=== PATIENT | male | born 1985 | race Caucasian/White ===

== ENCOUNTER → 2018-08-08 | Outpatient (REF) | payer OTHER ==
[2018-08-08 19:42] LABS: APPEARANCE, URINE CLOUDY (CLEAR); BACTERIA, URINE AUTO NEGATIVE (NEGATIVE); BILIRUBIN, URINE AUTO NEGATIVE (NEGATIVE); BLOOD, URINE BLOOD 3+ (NEGATIVE); COLOR, URINE AMBER (YELLOW); GLUCOSE, URINE (UA) AUTO NEGATIVE (NEGATIVE); KETONE, URINE AUTO TRACE mg/dL (NEGATIVE); LEUKOCYTE ESTERASE, URINE AUTO NEGATIVE (NEGATIVE); MUCUS, URINE SMALL (NEGATIVE); NITRITE, URINE AUTO NEGATIVE (NEGATIVE); PROTEIN, URINE AUTO 2+ mg/dL (NEGATIVE); RBC, URINE AUTO TNTC /HPF (0-3); SPECIFIC GRAVITY URINE AUTO 1.028 (1.002-1.035); SQUAMOUS EPITHELIAL CELL UR AU 0 /HPF (0-6); UROBILINOGEN, URINE AUTO 0.2 mg/dL (0.0-2.0); WBC, URINE AUTO 16 /HPF (0-3)
== END ==
LOC: M SMT 17:26
PROVIDERS: ATTEND Nurse Practitioner Family
DX: R31.0 Gross hematuria (principal)

== ENCOUNTER 2018-09-27 12:18 | Day surgery (SDC) | payer OTHER ==
[~2018-09-27] VITALS: Ht 194.3 cm; Wt 101.5 kg
[~2018-09-27 12:18] MED LIST: CIPR500T39 PO; LIDOCAINE 1% MDV 20ML VIAL SQ PRN
[2018-09-27] MEDS ORDERED: LR 1,000 ML IV ONE (12:45)
[2018-09-27] MEDS ORDERED: ROCURONIUM BROMIDE 50 MG/5 ML VIAL As Ordered ONE (14:55)
[2018-09-27] MEDS ORDERED: LIDOCAINE 2% INJ 100 MG/5 ML SDV (FOR ANES.) As Ordered ONE (14:55)
[2018-09-27] MEDS ORDERED: dexameTHASONE 4 MG/ML 1ML VIAL (J1100) As Ordered ONE (14:55)
[2018-09-27] MEDS ORDERED: PROPOFOL 200 MG/20 ML VIAL As Ordered ONE (14:55)
[2018-09-27] MEDS ORDERED: ONDANSETRON 4MG/2ML VIAL (J2405) As Ordered ONE (14:55)
[2018-09-27] MEDS ORDERED: MIDAZOLAM INJ 2 MG/2 ML VIAL (J2250) As Ordered ONE (16:03)
[2018-09-27] MEDS ORDERED: fentaNYL 100 MCG/2 ML INJECTION (J3010) As Ordered ONE ×3 (16:03→18:14)
[2018-09-27] MEDS ORDERED: GLYCOPYRROLATE INJ 0.2 MG/ML 2 ML VIAL As Ordered ONE (17:13)
[2018-09-27] MEDS ORDERED: NEOSTIGMINE 10 MG/10 ML VIAL (J2710) As Ordered ONE (17:14)
[2018-09-27] MEDS ORDERED: CONRAY-60 60% 50ML VIAL (Q9961) As Ordered ONE (17:23)
[2018-09-27] MEDS ORDERED: fentaNYL 100 MCG/2 ML INJECTION (J3010) IV PRN (19:00)
[2018-09-27] MEDS ORDERED: ONDANSETRON 4MG/2ML VIAL (J2405) IV PRN (19:00)
[2018-09-27] MEDS ORDERED: METOCLOPRAMIDE INJ 10MG/2ML VIAL (J2765) IV PRN (19:00)
[2018-09-27] MEDS ORDERED: PERCOCET 5MG/325MG TAB PO PRN ×2 (19:00)
[2018-09-27] MEDS ORDERED: LR 1,000 ML IV SCH (19:00)
--- NOTE | 2018-09-27 19:06 | REP ---
C-ARM VIEWS DURING URETERAL STENT PLACEMENT AND RETROGRADE PYELOGRAM: Multiple C-Arm views are performed. The first images show opacification of the left ureter and partial opacification of the left pelvicaliceal system. A left ureteral stent is placed in the proximal end coiled in the left renal pelvis and the distal end in coiled in the urinary bladder. Right ureter is then injected with contrast. Right ureter is normal in caliber in the proximal to mid aspect. 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 The two proximal ureters joint at about the L2 level. No definite filling defect or contour abnormality is seen of the right pelvicaliceal system. 28 seconds fluoroscopy time utilized. Electronically Signed by Barrett Nguyen MD 09/28/2018 03:07 P
[2018-09-27] MEDS ORDERED: PROMETHAZINE INJ 25 MG/ML VIAL (J2550) As Ordered ONE (19:35)
[2018-09-27] MEDS: PROMETHAZINE INJ 25 MG/ML VIAL (J2550) IV PRN ×2 (19:38→19:44)
[2018-09-27 20:45] VITALS: BP 130/80
--- NOTE | 2018-09-28 00:10 | RO ---
DATE OF PROCEDURE: 09/27/2018 PREPROCEDURE DIAGNOSIS: Bladder tumors. POSTPROCEDURE DIAGNOSIS: Bladder tumors, left ureteral mass. PROCEDURE: Cystoscopy, transurethral resection of bladder tumor (greater than 5 cm), left ureteroscopy with biopsies, bilateral retrograde pyelogram with intraoperative interpretation of images, left ureteral stent placement, examination under anesthesia. SURGEON: Shashank Morillo MD BOOKBINDER CHIEF: None. ANESTHESIA: General. OPERATIVE INDICATIONS: This is a 33-year-old male who on recent office cystoscopy was found to have several bladder tumors on the left side of his bladder as well near the bladder neck. He was brought to the operating room today for resection of the tumors. DESCRIPTION OF PROCEDURE: The patient was brought to the operating room and general anesthesia induced. Prophylactic antibiotics were infused. He was then placed in the dorsal lithotomy position and then a bimanual digital rectal examination under anesthesia was performed. It was negative for prostate nodules. There were no palpable bladder masses. The bladder was freely mobile. The patient was then prepped and draped in the usual sterile fashion, and then a rigid cystoscope was then inserted into the urethral meatus and advanced into the bladder. The bladder was then thoroughly examined with both the 30- and the 70-degree lenses and abnormalities seen included 4-5 moderate-sized bladder tumors on the left lateral wall, as well as on the bladder neck on the left side, as well as near the left trigone. All of these tumors were then resected using a Gyrus loop and then the specimens were sent off for pathologic analysis. The base of the resection was cauterized, achieved good hemostasis. Of note, I did resect deep enough into the muscle layers at each tumor site. Once satisfied with hemostasis, I observed the ureteral orifices and there appeared to be tissue emanating from the left ureteral orifice, raising concern for a tumor in the left upper tract. At this point, a wire was advanced up the left collecting system and then I went up the left collecting system with a short semirigid ureteroscope. There appeared to be a potential small mass in the distal left ureter. A few biopsies of this area were obtained to be sent for pathologic analysis. A retrograde pyelogram was then performed and was negative for hydronephrosis or filling defects. I then examined the remainder of the ureter as well as the left kidney with the semirigid ureteroscope and then the flexible ureteroscope, and no tumors were seen in the rest of the ureter or the kidney. At this point, the ureteroscope was removed, and the wire was utilized to advance a 6-Citizen [place] x 22-32 cm JJ ureteral stent up into the left collecting system. The wire was removed, and there were adequate curls of the stent in the left renal pelvis and in the bladder. At this point, a wire was advanced up the right collecting system and then an open ureteral catheter was advanced up the right collecting system. The wire was removed, and a retrograde pyelogram was performed. It was negative for hydronephrosis or filling defects. 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 Once this was done, I checked for hemostasis and hemostasis appeared to be excellent. The cystoscope was then removed and then an 18-Citizen Of [place] Cao catheter was inserted in the bladder, and the balloon was filled with 10 mL of sterile water. The catheter was then connected to gravity drainage, and this marked the conclusion of the procedure. The patient was then taken out of the dorsal lithotomy position, awakened from anesthesia and transported to the recovery room in stable condition. Estimated blood loss: 10 mL. Complications: None. Specimens: Bladder tumors, biopsy of left ureteral mass. PLAN: The patient will followup in the clinic in approximately 1 week for catheter removal and to discuss pathology results. Will remove the stent in a few weeks. JUAN
== END 2018-09-27 20:50 | disposition home or self-care (01) ==
LOC: M SDC 12:18
PROVIDERS: ATTEND Urology
DX: C67.9 Malignant neoplasm of bladder, unspecified (principal); I10 Essential (primary) hypertension; Z91.040 Latex allergy status; F12.10 Cannabis abuse, uncomplicated
CPT/HCPCS: 52204; 52240; 52332; 74420; 88305; 88307; C1769; C1894; C2617; J0690; J1100; J2250; J2405; J2710; J2765; J3010; Q9961

== ENCOUNTER 2018-11-15 08:45 | Day surgery (SDC) | payer OTHER ==
[~2018-11-15] VITALS: Ht 193 cm; Wt 98.0 kg
[~2018-11-15 08:45] MED LIST changes: +LR 1,000 ML IV ONE
[2018-11-15] MEDS ORDERED: ceFAZolin 2 GM/D5W 50 ML IV BAG (J0690 PER 500MG) As Ordered ONE (09:33)
[2018-11-15] MEDS ORDERED: PROPOFOL 200 MG/20 ML VIAL As Ordered ONE (09:46)
[2018-11-15] MEDS ORDERED: LIDOCAINE 2% INJ 100 MG/5 ML SDV (FOR ANES.) As Ordered ONE (09:46)
[2018-11-15] MEDS ORDERED: dexameTHASONE 4 MG/ML 1ML VIAL (J1100) As Ordered ONE (09:47)
[2018-11-15] MEDS ORDERED: ROCURONIUM BROMIDE 50 MG/5 ML VIAL As Ordered ONE ×2 (10:25→11:20)
[2018-11-15] MEDS ORDERED: fentaNYL 250 MCG/5 ML INJECTION (J3010) As Ordered ONE (10:25)
[2018-11-15] MEDS ORDERED: MIDAZOLAM INJ 2 MG/2 ML VIAL (J2250) As Ordered ONE (10:25)
[2018-11-15] MEDS ORDERED: ceFAZolin 2 GM/D5W 50 ML IV BAG (J0690 PER 500MG) IV ONE (11:07)
[2018-11-15] MEDS ORDERED: SUGAMMADEX SODIUM 500 MG/5 ML VIAL (BRIDION) As Ordered ONE (11:30)
[2018-11-15] MEDS ORDERED: ONDANSETRON 4MG/2ML VIAL (J2405) As Ordered ONE (11:30)
[2018-11-15] MEDS ORDERED: fentaNYL 100 MCG/2 ML INJECTION (J3010) IV PRN (12:15)
[2018-11-15] MEDS ORDERED: ONDANSETRON 4MG/2ML VIAL (J2405) IV PRN (12:15)
[2018-11-15] MEDS ORDERED: LR 1,000 ML IV SCH (12:15)
[2018-11-15] MEDS ORDERED: ACETAMINOPHEN TAB 650MG DOSE (2X325MG) PO PRN (12:15)
[2018-11-15] MEDS ORDERED: PERCOCET 5MG/325MG TAB PO PRN (12:15)
[2018-11-15 13:00] VITALS: BP 146/91
--- NOTE | 2018-11-18 09:26 | RO ---
DATE OF PROCEDURE: 11/15/2018 PREPROCEDURE DIAGNOSIS: Bladder cancer. POSTPROCEDURE DIAGNOSIS: Bladder cancer. OPERATIVE PROCEDURE: Cystoscopy, restaging transurethral resection of bladder tumor (between 2 and 5 cm), removal of left ureteral stent. SURGEON: Shashank Morillo MD SENIOR VISUAL DESIGNER: None. ANESTHESIA: General. OPERATIVE INDICATIONS: This is a 33-year-old male recently diagnosed with a high grade non-muscle invasive bladder cancer. He had a stent placed at that time. He is brought back to the operating room today per routine for restaging transurethral resection of bladder tumor and also for stent removal. DESCRIPTION OF PROCEDURE: The patient was brought to the operating room and general anesthesia was induced. Prophylactic antibiotics were infused. He was then placed in dorsal lithotomy position and prepped and draped in the usual sterile fashion. At this point, I attempted to insert a resectoscope into the urethral meatus but it would not go. I therefore dilated the urethral meatus to 30-Thai using metal sounds. Once that was done, I was able to get the resectoscope in. I then advanced it into the bladder and then the bladder was thoroughly examined. No tumors were seen. There was a lot of edema on the left side of the bladder in the area of the stent. Once again, no tumors were seen in this area. I then resected the base of the previous area of resection around the stent and tried to get down to the muscle layer. All the specimen was then removed from the bladder using Ellik evacuator. The base of resection was then cauterized with coagulation current until we had good hemostasis. Once satisfied with hemostasis, the stent was then removed. I then went back in with a scope and examined the bladder again to ensure that there was no active bleeding and no tumors and there was no active bleeding and there were no tumors in the bladder. At this point, the resectoscope was removed and an #18-Thai Cao catheter was inserted into the bladder. The balloon was filled with 10 mL of sterile water and the catheter was connected to gravity drainage. This marked the conclusion of the procedure. The patient was taken out of dorsal lithotomy position and awakened from anesthesia and transported to recovery room in stable condition. ESTIMATED BLOOD LOSS: 10 mL. COMPLICATIONS: None. SPECIMENS: Resection of bladder tumor base. PLAN: The patient will followup in the clinic next week for catheter removal and to discuss pathology results.
== END 2018-11-15 13:20 | disposition home or self-care (01) ==
LOC: M SDC 08:45
PROVIDERS: ATTEND Urology
DX: C67.9 Malignant neoplasm of bladder, unspecified (principal); F12.90 Cannabis use, unspecified, uncomplicated
CPT/HCPCS: 52235; 88307; J0690; J1100; J2250; J2405; J3010

== ENCOUNTER → 2019-04-29 | Outpatient (REF) | payer OTHER, MEDICAID ==
[~2019-04-29] MED LIST changes: -LIDOCAINE 1% MDV 20ML VIAL SQ PRN; -LR 1,000 ML IV ONE
== END ==
LOC: M SMT 18:19
PROVIDERS: ATTEND Urology
DX: C67.9 Malignant neoplasm of bladder, unspecified (principal)

== ENCOUNTER → 2019-08-18 | Outpatient (REF) | payer OTHER, MEDICAID | LOC: M SMT 17:12 | PROVIDERS: ATTEND Urology | DX: C67.9 Malignant neoplasm of bladder, unspecified (principal) ==

== ENCOUNTER → 2019-08-18 | Outpatient (REF) | payer OTHER, MEDICAID | LOC: M SMT 17:10 | PROVIDERS: ATTEND Urology | DX: C67.9 Malignant neoplasm of bladder, unspecified (principal) ==

== ENCOUNTER → 2019-11-21 | Outpatient (REF) | payer OTHER, MEDICAID | LOC: M SMT 16:44 | PROVIDERS: ATTEND Urology | DX: C67.9 Malignant neoplasm of bladder, unspecified (principal) ==

== ENCOUNTER → 2020-04-26 | Outpatient (REF) | payer OTHER, MEDICAID | LOC: M SMT 13:22 | PROVIDERS: ATTEND Urology | DX: C67.9 Malignant neoplasm of bladder, unspecified (principal) ==

== ENCOUNTER → 2020-06-25 | Outpatient (CLI) | payer OTHER ==
[~2020-06-25] MED LIST changes: +ISOVUE-370 76% 100ML VIAL As Ordered ONE
--- NOTE | 2020-06-25 18:31 | REP ---
INDICATION: BLADDER CA, FLANK PAIN. CT urography. COMPARISON: None. TECHNIQUE: Contrast dose: ML of Isovue [address] technique: Helical scanning is acquired and overlapping 1.5 mm and contiguous 3 mm axial images are reformatted. In addition, maximum intensity projection and multiplanar re-formation images are generated in sagittal and coronal imaging projections. 3D surface rendered images are generated and viewed in a rotational format. FINDINGS: Preliminary digital marine resource economist radiograph is unremarkable. The lung bases are clear on axial CT images. The liver and the spleen are normal in size homogeneous in texture on postcontrast and precontrast imaging. Normal adrenal glands are seen bilaterally. No abnormality is noted in the pancreas or in the gallbladder. No retroperitoneal mass or adenopathy is observed. The kidneys show no evidence of hydronephrosis or intrarenal calculus. There is moderate multifocal renal cortical scarring affecting the upper pole and midpole of the left kidney. This resembles reflux nephropathy. There is no evidence of hydronephrosis however. Contrast enhancement is symmetric except for the areas of cortical scarring. There is no evidence of enhancing bladder mass on postcontrast images. The prostate is mildly prominent. Seminal vesicles are unremarkable. No filling defect is seen within the urinary bladder or intrarenal collecting systems on postcontrast delayed scan images. Partially duplicated collecting systems are noted bilaterally. The ureters describe a normal course to the bladder. No renal cyst or mass is observed. Small and large intestinal bowel loops are unremarkable. No abdominal wall defect is seen. No bony destructive lesion is appreciated. IMPRESSION: Multifocal renal cortical scarring upper and midpole left kidney question reflux nephropathy. 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 No bladder lesion seen. Mildly enlarged prostate. <Electronically signed by Yonathan Moreno > 06/25/20 [id number]
== END ==
LOC: M RAD 10:28
PROVIDERS: ATTEND Urology
DX: C67.9 Malignant neoplasm of bladder, unspecified (principal); R10.9 Unspecified abdominal pain
CPT/HCPCS: 74178; Q9967

== ENCOUNTER → 2020-09-12 | Outpatient (CLI) | payer OTHER ==
[~2020-09-12] MED LIST changes: -ISOVUE-370 76% 100ML VIAL As Ordered ONE
== END ==
LOC: M LABSMTC 08:15
PROVIDERS: ATTEND Anesthesiology
DX: Z01.818 Encounter for other preprocedural examination (principal); Z20.822 Contact with and (suspected) exposure to COVID-19

== ENCOUNTER 2020-09-17 08:50 | Day surgery (SDC) | payer OTHER ==
[~2020-09-17] VITALS: Ht 193 cm; Wt 111.1 kg
[~2020-09-17 08:50] MED LIST changes: +LR 1,000 ML IV ONE
[2020-09-17] MEDS ORDERED: MIDAZOLAM INJ 2MG/2ML VIAL (J2250 PER 1MG) As Ordered ONE (09:12)
[2020-09-17] MEDS ORDERED: PHENYLephrine 500MCG 5ML (100MCG/ML) SYRINGE As Ordered ONE (09:13)
[2020-09-17] MEDS ORDERED: propofoL 200 MG/20 ML VIAL As Ordered ONE (09:13)
[2020-09-17] MEDS ORDERED: ONDANSETRON 4MG/2ML VIAL As Ordered ONE (09:13)
[2020-09-17] MEDS ORDERED: ACETAMINOPHEN 1000MG 100ML IV BTL (OFIRMEV) (J0131 PER 10MG) As Ordered ONE (09:13)
[2020-09-17] MEDS ORDERED: dexameTHASONE 4 MG/ML 1ML VIAL (J1100 PER 1MG) As Ordered ONE (09:13)
[2020-09-17] MEDS ORDERED: LIDOCAINE 2% 100MG/5ML SDV (FOR ANES.) As Ordered ONE (09:13)
[2020-09-17] MEDS ORDERED: fentaNYL 100 MCG/2 ML INJECTION (J3010) As Ordered ONE (09:13)
[2020-09-17] MEDS ORDERED: ePHEDrine SULFATE 25 MG/5 ML(5MG/ML) SYRINGE As Ordered ONE (09:13)
[2020-09-17] MEDS ORDERED: ceFAZolin SOD 2 GM in IV 1 EA IV ONE (09:45)
[2020-09-17] MEDS ORDERED: ROCURONIUM BROMIDE 50 MG/5 ML VIAL As Ordered ONE ×2 (10:40→11:41)
[2020-09-17] MEDS ORDERED: SUGAMMADEX SODIUM 500 MG/5 ML VIAL (BRIDION) As Ordered ONE (10:40)
[2020-09-17] MEDS ORDERED: mitoMYcin 40MG VIAL *UROLOGY* (J9280 PER 5MG) INTRAVESIC ONE (11:00)
[2020-09-17] MEDS ORDERED: ONDANSETRON 4MG/2ML VIAL IV PRN (12:30)
[2020-09-17] MEDS ORDERED: LR 1,000 ML IV SCH (12:30)
[2020-09-17] MEDS ORDERED: fentaNYL 100 MCG/2 ML INJECTION (J3010) IV PRN (12:30)
[2020-09-17] MEDS ORDERED: METOCLOPRAMIDE INJ 10MG/2ML VIAL (J2765 PER 1) IV PRN (12:30)
[2020-09-17] MEDS ORDERED: PERCOCET 5MG/325MG TAB PO PRN (12:30)
[2020-09-17] MEDS ORDERED: ACETAMINOPHEN TAB 650MG DOSE (2X325MG) PO PRN (12:35)
--- NOTE | 2020-09-17 12:57 | RO ---
OPERATIVE NOTE DATE OF OPERATION: 09/17/2020 PREOPERATIVE DIAGNOSIS: Bladder cancer. POSTOPERATIVE DIAGNOSIS: Bladder cancer. PROCEDURE: Cystoscopy, transurethral resection of bladder tumors (between 2 and 5 cm), intravesical Mitomycin C instillation. SURGEON: Shashank Morillo MD SEXUAL ASSAULT COUNSELLOR: None. ANESTHESIA: General. OPERATIVE INDICATIONS: This is a 35-year-old male with history of bladder cancer who recently had recurrence of low grade tumors. He is brought to the operating room today for treatment of his recurrence. DESCRIPTION OF PROCEDURE: The patient was brought to the operating room and general anesthesia was induced. Prophylactic antibiotics were infused. The patient was placed in dorsal lithotomy position and prepped and draped in usual sterile fashion. At this point a resectoscope was inserted in urethral meatus and advanced to the bladder using the visual obturator. Once inside the bladder it was thoroughly examined. Of note, there were a few small tumors near the dome of the bladder measuring up to about 2.5 cm in size. No other tumors were seen inside the bladder. Both ureteral orifices effluxed clear yellow urine. At this point a loop was utilized to resect the tumors from the dome. All these tumors were sent off for pathologic analysis. Once all the tumors were removed the base resection was cauterized using the coagulation current. Once satisfied with hemostasis the resectoscope was removed. An 18-Lao three-way catheter was inserted into the bladder. The balloon was filled with 30 mL of sterile water. At this point we hooked up the irrigation port to saline and I closed off the saline. We then instilled a total of 40 mg of Mitomycin C in 20 mL of normal saline into the patient's bladder. The catheter plug was then placed to hold that into the bladder. At this point this marked the conclusion of the procedure. The patient was taken out of the dorsal lithotomy position, awakened from anesthesia and transferred to the recovery room in stable condition. ESTIMATED BLOOD LOSS: 5 mL. COMPLICATIONS: None. SPECIMEN: Bladder tumors. PLAN: The patient will keep the Mitomycin C inside his bladder for about an hour in the recovery room. We will have him move from one side to the other so that each aspect of the bladder is exposed to Mitomycin. We then will let it drain out of the bladder and run the saline through. He will go home with a catheter and follow up in urology office next week for catheter removal and discuss his pathology results.
[2020-09-17 14:15] VITALS: BP 158/88
== END 2020-09-17 15:04 | disposition home or self-care (01) ==
LOC: M SDC 08:50
PROVIDERS: ATTEND Urology
DX: C67.9 Malignant neoplasm of bladder, unspecified (principal); Z91.040 Latex allergy status; Z92.21 Personal history of antineoplastic chemotherapy; Z87.891 Personal history of nicotine dependence
CPT/HCPCS: 51720; 52235; 88305; J0131; J0690; J1100; J2250; J2370; J2405; J2765; J3010; J9280

== ENCOUNTER → 2021-01-14 | Outpatient (REF) | payer OTHER ==
[~2021-01-14] MED LIST changes: -LR 1,000 ML IV ONE
== END ==
LOC: M SMT 12:56
PROVIDERS: ATTEND Urology
DX: C67.9 Malignant neoplasm of bladder, unspecified (principal)

== ENCOUNTER → 2021-05-06 | Outpatient (REF) | payer OTHER | LOC: M SMT 17:41 | PROVIDERS: ATTEND Urology | DX: C67.9 Malignant neoplasm of bladder, unspecified (principal) ==

== ENCOUNTER → 2021-08-08 | Outpatient (REF) | payer OTHER | LOC: M SMT 17:06 | PROVIDERS: ATTEND Urology | DX: C67.9 Malignant neoplasm of bladder, unspecified (principal) ==

== ENCOUNTER → 2021-11-21 | Outpatient (REF) | payer OTHER | LOC: M SMT 17:09 | PROVIDERS: ATTEND Urology | DX: C67.9 Malignant neoplasm of bladder, unspecified (principal) ==

== ENCOUNTER → 2022-05-08 | Outpatient (REF) | payer OTHER | LOC: M SMT 13:05 | PROVIDERS: ATTEND Urology | DX: C67.9 Malignant neoplasm of bladder, unspecified (principal) ==

== ENCOUNTER → 2022-11-14 | Outpatient (REF) | payer OTHER | LOC: M SMT 18:00 | PROVIDERS: ATTEND Urology | DX: C67.9 Malignant neoplasm of bladder, unspecified (principal) ==

== ENCOUNTER → 2022-11-29 | Outpatient (CLI) | payer OTHER ==
[~2022-11-29] MED LIST changes: +ISOVUE-370 76% 100ML VIAL As Ordered ONE
== END ==
LOC: M RAD 15:21
PROVIDERS: ATTEND Urology
DX: C67.9 Malignant neoplasm of bladder, unspecified (principal)
CPT/HCPCS: 74178; Q9967

== ENCOUNTER 2022-12-29 11:11 | Day surgery (SDC) | payer OTHER ==
[~2022-12-29] VITALS: Ht 193 cm; Wt 109.8 kg
[~2022-12-29 11:11] MED LIST changes: +ATEN50TA2 PO; +EZET10TA21 PO; -ISOVUE-370 76% 100ML VIAL As Ordered ONE; +LIDOCAINE 2% 100MG/5ML SDV (FOR ANES.) As Ordered ONE; +MIDAZOLAM INJ 2MG/2ML VIAL As Ordered ONE; +ONDANSETRON 4MG 2ML VIAL As Ordered ONE; +ROCURONIUM BROMIDE 50MG/5ML VIAL As Ordered ONE; +ceFAZolin SOD 2 GM in IV 1 EA IV ONE; +fentaNYL 250 MCG/5 ML INJECTION As Ordered ONE; +mitoMYcin 40MG VIAL *UROLOGY INTRAVESIC ONE; +propofoL 200 MG/20 ML VIAL As Ordered ONE
[2022-12-29] MEDS ORDERED: METOCLOPRAMIDE INJ 10MG/2ML VIAL As Ordered ONE (11:33)
[2022-12-29] MEDS ORDERED: LR 1,000 ML IV SCH ×2 (11:50→13:35)
[2022-12-29] MEDS ORDERED: SUGAMMADEX SODIUM 500 MG/5 ML VIAL (BRIDION) As Ordered ONE (13:21)
[2022-12-29] MEDS ORDERED: propofoL 200 MG/20 ML VIAL As Ordered ONE (13:21)
[2022-12-29] MEDS ORDERED: ACETAMINOPHEN 1000MG 100ML IV BAG As Ordered ONE (13:21)
[2022-12-29] MEDS ORDERED: fentaNYL 100 MCG/2 ML INJECTION IV PRN (13:35)
[2022-12-29] MEDS ORDERED: HYDROMORPHONE HCL 0.5 MG/ 0.5 ML SYRINGE IV PRN (13:35)
[2022-12-29] MEDS ORDERED: oxyCODONE 5MG TAB PO PRN (13:35)
[2022-12-29] MEDS ORDERED: ONDANSETRON 4MG 2ML VIAL IV PRN (13:35)
[2022-12-29] MEDS ORDERED: ACETAMINOPHEN TAB 650MG DOSE (2X325MG) PO PRN (14:00)
[2022-12-29 14:14] VITALS: TEMP 96.8
[2022-12-29 15:01] VITALS: BP 130/72; O2SAT 96
== END 2022-12-29 15:31 | disposition home or self-care (01) ==
LOC: M SDC 11:11
PROVIDERS: ATTEND Urology
DX: C67.9 Malignant neoplasm of bladder, unspecified (principal); I10 Essential (primary) hypertension; E78.5 Hyperlipidemia, unspecified; K21.9 Gastro-esophageal reflux disease without esophagitis; Z79.899 Other long term (current) drug therapy; Z87.891 Personal history of nicotine dependence; Z91.040 Latex allergy status
CPT/HCPCS: 51720; 52235; 88305; J0131; J0690; J2250; J2405; J3010; J9280

== ENCOUNTER → 2023-02-28 | Outpatient (REF) | payer OTHER ==
[~2023-02-28] MED LIST changes: -LIDOCAINE 2% 100MG/5ML SDV (FOR ANES.) As Ordered ONE; -MIDAZOLAM INJ 2MG/2ML VIAL As Ordered ONE; -ONDANSETRON 4MG 2ML VIAL As Ordered ONE; -ROCURONIUM BROMIDE 50MG/5ML VIAL As Ordered ONE; -ceFAZolin SOD 2 GM in IV 1 EA IV ONE; -fentaNYL 250 MCG/5 ML INJECTION As Ordered ONE; -mitoMYcin 40MG VIAL *UROLOGY INTRAVESIC ONE; -propofoL 200 MG/20 ML VIAL As Ordered ONE
[2023-02-28 18:23] LABS: APPEARANCE, URINE CLEAR (CLEAR); BACTERIA, URINE AUTO NEGATIVE (NEGATIVE); BILIRUBIN, URINE AUTO NEGATIVE (NEGATIVE); BLOOD, URINE BLOOD NEGATIVE (NEGATIVE); COLOR, URINE YELLOW (YELLOW); GLUCOSE, URINE (UA) AUTO NEGATIVE (NEGATIVE); KETONE, URINE AUTO TRACE mg/dL (NEGATIVE); LEUKOCYTE ESTERASE, URINE AUTO NEGATIVE (NEGATIVE); MUCUS, URINE SMALL (NEGATIVE); NITRITE, URINE AUTO NEGATIVE (NEGATIVE); PROTEIN, URINE AUTO NEGATIVE (NEGATIVE); RBC, URINE AUTO 3 /HPF (0-3); SPECIFIC GRAVITY URINE AUTO 1.025 (1.002-1.035); SQUAMOUS EPITHELIAL CELL UR AU 0 /HPF (0-6); UROBILINOGEN, URINE AUTO 0.2 mg/dL (0.0-2.0); WBC, URINE AUTO 2 /HPF (0-3)
== END ==
LOC: M SMT 16:59
PROVIDERS: ATTEND Physician Assistant
DX: C67.9 Malignant neoplasm of bladder, unspecified (principal)

== ENCOUNTER → 2023-02-28 | Outpatient (CLI) | payer OTHER, SELFPAY | LOC: M WHC 08:57 | PROVIDERS: ATTEND Physician Assistant | DX: C67.9 Malignant neoplasm of bladder, unspecified (principal) ==

== ENCOUNTER → 2023-07-17 | Outpatient (REF) | payer OTHER | LOC: M SMT 15:24 | PROVIDERS: ATTEND Urology | DX: C67.9 Malignant neoplasm of bladder, unspecified (principal) ==

== ENCOUNTER → 2023-10-19 | Outpatient (REF) | payer OTHER | LOC: M SMT 16:57 | PROVIDERS: ATTEND Urology | DX: C67.9 Malignant neoplasm of bladder, unspecified (principal); R82.89 Other abnormal findings on cytological and histological examination of urine ==

== ENCOUNTER → 2024-01-21 | Outpatient (REF) | payer OTHER | LOC: M LAB REF 12:31 | PROVIDERS: ATTEND Urology | DX: C67.9 Malignant neoplasm of bladder, unspecified (principal) ==

== ENCOUNTER → 2024-07-22 | Outpatient (REF) | payer OTHER | LOC: M SMT 13:38 | PROVIDERS: ATTEND Urology | DX: C67.9 Malignant neoplasm of bladder, unspecified (principal) ==

== ENCOUNTER 2024-07-31 08:34 | Day surgery (SDC) | payer OTHER ==
[~2024-07-31] VITALS: Ht 193 cm; Wt 112.5 kg
[~2024-07-31 08:34] MED LIST changes: +KETOROLAC 60MG 2ML VIAL As Ordered ONE
[2024-07-31] MEDS ORDERED: LR 1,000 ML IV SCH (09:10)
[2024-07-31] MEDS ORDERED: ROCURONIUM BROMIDE 50MG/5ML VIAL As Ordered ONE (11:27)
[2024-07-31] MEDS: ceFAZolin SOD 2 GM in IV 1 EA IV ONE (11:53)
[2024-07-31] MEDS ORDERED: SUGAMMADEX SODIUM 500 MG/5 ML VIAL (BRIDION) As Ordered ONE (12:09)
[2024-07-31] MEDS ORDERED: oxyCODONE 5MG TAB PO PRN (12:25)
[2024-07-31] MEDS ORDERED: ONDANSETRON 4MG 2ML VIAL IV PRN (12:25)
[2024-07-31] MEDS ORDERED: fentaNYL 100 MCG/2 ML INJECTION IV PRN (12:25)
[2024-07-31] MEDS: MITOMYCIN 40MG IN 20ML SWFI SYRINGE INTRAVESIC ONE (12:25)
[2024-07-31] MEDS ORDERED: MORPHINE 2 MG/ML 1ML VIAL IV PRN (12:25)
[2024-07-31] MEDS ORDERED: OXYB10TA23 PO (12:33)
[2024-07-31] MEDS ORDERED: CIPR-249 PO (12:33)
[2024-07-31 15:02] VITALS: BP 160/95; TEMP 97.2; O2SAT 97
== END 2024-07-31 15:15 | disposition home or self-care (01) ==
LOC: M SDC 08:34
PROVIDERS: ATTEND Urology
DX: N32.89 Other specified disorders of bladder (principal); Z85.51 Personal history of malignant neoplasm of bladder; I10 Essential (primary) hypertension; E78.00 Pure hypercholesterolemia, unspecified; Z92.21 Personal history of antineoplastic chemotherapy; Z79.899 Other long term (current) drug therapy; Z91.040 Latex allergy status; Z87.891 Personal history of nicotine dependence; Z80.1 Family history of malignant neoplasm of trachea, bronchus and lung
CPT/HCPCS: 52235; 88305; J0690; J1885; J9280

== ENCOUNTER → 2025-02-16 | Outpatient (REF) | payer OTHER ==
[~2025-02-16] MED LIST changes: +CIPR-249 PO; -EZET10TA21 PO; +EZET10TA57 PO; -KETOROLAC 60MG 2ML VIAL As Ordered ONE; +OXYB10TA23 PO
== END ==
LOC: M SMT 12:47
PROVIDERS: ATTEND Urology
DX: C67.9 Malignant neoplasm of bladder, unspecified (principal)